=== PATIENT | male | born 1985 | race Two or more races ===

== ENCOUNTER 2020-12-09 21:25 | Emergency (ER) | payer MEDICAID ==
[~2020-12-09] VITALS: Ht 175.3 cm; Wt 99.8 kg
[2020-12-09] MEDS ORDERED: diphenhydrAMINE 50 MG CAPSULE PO ONE (21:30)
[2020-12-09] MEDS ORDERED: OLANZAPINE 5 MG TABLET PO ONE (21:30)
--- NOTE | 2020-12-09 21:50 | NUR ---
Pt placed on suicide precautions, belongings at nursing station.
--- NOTE | 2020-12-09 21:50 | NUR ---
Pt found by staff member attempting to hang himself, Dr. Ragland notified.
[2020-12-09] MEDS ORDERED: LORAZEPAM 2 MG/1 ML VIAL IM ONE (22:00)
[2020-12-09] MEDS ORDERED: HALOPERIDOL LACTATE 5 MG/1 ML VIAL IM ONE (22:00)
--- NOTE | 2020-12-09 22:00 | NUR ---
called for sitter, none available at the time, will continue to monitor.
[2020-12-09 22:12] LABS: HEMATOCRIT 39.1 % (36.7-47.1); MEAN CORPUSCULAR HEMOGLOBIN 29.2 uug (23.8-33.4); MEAN CORPUSCULAR VOLUME 85.5 fL (73.0-96.2); PLATELET COUNT (AUTO) 314 K/uL (152-348)
--- NOTE | 2020-12-09 22:15 | NUR ---
pt in bed, no distressed noted
[2020-12-09 22:16] LABS: CARBON DIOXIDE 25 mmol/L (21-32); CHLORIDE 105 mmol/L (98-107); GLUCOSE 103 mg/dL (74-106); POTASSIUM 3.7 mmol/L (3.5-5.1); UREA NITROGEN, BLOOD 22 mg/dL (7-18)
[2020-12-09] MEDS ORDERED: LORAZEPAM 2 MG/1 ML VIAL ONE (22:16)
[2020-12-09] MEDS ORDERED: HALOPERIDOL LACTATE 5 MG/1 ML VIAL ONE (22:16)
[2020-12-09 22:21] LABS: ALANINE AMINOTRANSFERASE 58 U/L (16-63); ALKALINE PHOSPHATASE 82 U/L (50-136); ASPARTATE AMINOTRANSFERASE 47 U/L (15-37); BILIRUBIN,DIRECT 0.2 mg/dL (0.0-0.2); BILIRUBIN,TOTAL 0.6 mg/dL (0.2-1.0); TOTAL PROTEIN, SERUM 7.9 g/dL (6.4-8.2)
[2020-12-09 22:22] LABS: ACETAMINOPHEN < 2.0 ug/mL (10-30)
[2020-12-09 22:25] LABS: ETHANOL < 3 MG/DL (0-0)
--- NOTE | 2020-12-09 22:30 | NUR ---
pt in bed asleep
--- NOTE | 2020-12-09 22:45 | NUR ---
pt in bed asleep
[2020-12-09] MEDS ORDERED: diphenhydrAMINE 50 MG/1 ML VIAL ONE (23:00)
[2020-12-09] MEDS ORDERED: diphenhydrAMINE 50 MG/1 ML VIAL IM ONE (23:00)
--- NOTE | 2020-12-09 23:00 | NUR ---
pt in bed sleeping
--- NOTE | 2020-12-09 23:20 | NUR ---
Removed restraints at 2320, pt sleeping with no distress.
--- NOTE | 2020-12-09 23:30 | NUR ---
pt in bed sleeping
--- NOTE | 2020-12-09 23:45 | NUR ---
Pt in bed sleeping
--- NOTE | 2020-12-10 | NUR ---
pt in bed sleeping
--- NOTE | 2020-12-10 00:15 | NUR ---
pt in bed sleeping
--- NOTE | 2020-12-10 00:30 | NUR ---
pt in bed sleeping
--- NOTE | 2020-12-10 00:45 | NUR ---
pt in bed sleeping
--- NOTE | 2020-12-10 01:00 | NUR ---
pt in bed sleeping
--- NOTE | 2020-12-10 01:15 | NUR ---
pt in bed asleep
--- NOTE | 2020-12-10 01:30 | NUR ---
pt in bed sleeping
--- NOTE | 2020-12-10 01:45 | NUR ---
pt in bed sleeping, no distress noted
--- NOTE | 2020-12-10 02:00 | NUR ---
pt in bed sleeping
--- NOTE | 2020-12-10 02:15 | NUR ---
pt in bed sleeping
--- NOTE | 2020-12-10 02:30 | NUR ---
Pt in bed asleep
--- NOTE | 2020-12-10 03:00 | NUR ---
Pt is being seen by Patt from [facility].
--- NOTE | 2020-12-10 03:15 | NUR ---
Pt in bed sleeping
--- NOTE | 2020-12-10 03:30 | NUR ---
Pt in bed sleeping, no distress noted.
--- NOTE | 2020-12-10 03:45 | NUR ---
pt in bed sleeping
--- NOTE | 2020-12-10 04:00 | NUR ---
Pt in bed awake, no distressed noted.
--- NOTE | 2020-12-10 04:15 | NUR ---
Pt in bed asleep, no distress noted
--- NOTE | 2020-12-10 04:30 | NUR ---
Pt in bed, sleeping.
--- NOTE | 2020-12-10 04:45 | NUR ---
Pt in bed, sleeping, no distress noted.
--- NOTE | 2020-12-10 05:00 | NUR ---
Pt in bed sleeping, no distress noted.
--- NOTE | 2020-12-10 05:13 | NUR ---
Pt awake and eating, will continue to monitor
--- NOTE | 2020-12-10 05:30 | NUR ---
Pt sitting at edge of the bed, awake, no distressed noted
--- NOTE | 2020-12-10 05:45 | NUR ---
Pt asleep in bed.
--- NOTE | 2020-12-10 06:00 | NUR ---
Pt in bed sleeping
--- NOTE | 2020-12-10 06:16 | NUR ---
Talked to Patt from [facility], will come to evaluate. Pt awake in bed, no distressed noted.
--- NOTE | 2020-12-10 06:31 | NUR ---
Pt in bed asleep
--- NOTE | 2020-12-10 06:44 | NUR ---
Pt in bed asleep, no distressed noted.
--- NOTE | 2020-12-10 06:59 | NUR ---
Pt in bed asleep, no distress noted.
--- NOTE | 2020-12-10 07:13 | NUR ---
Gave report to Karyna FINLEY
--- NOTE | 2020-12-10 07:13 | NUR ---
Pt in bed asleep, no distress noted.
--- NOTE | 2020-12-10 07:30 | NUR ---
PATIENT IS ASLEEP, SLIGHTLY SNORING. VITAL SIGNS STABLE. AWAITING FOR CRISIS TEAM TO ARRIVE
--- NOTE | 2020-12-10 07:32 | NUR ---
NO SITTER AVAILABLE AT THIS TIME FOR CONSTANT AND DIRECT OBSERVATION.
--- NOTE | 2020-12-10 07:55 | NUR ---
Spoke with nursing first line production supervisor and there is no sitter available at this time for 1:1 observation. Security called (per nursing first line production supervisor request) to do 1:1 observation until a sitter is available.
--- NOTE | 2020-12-10 07:58 | NUR ---
PATIENT IS SITTING UP EATING BREAKFAST.
--- NOTE | 2020-12-10 08:20 | NUR ---
[employer] social science teacher here to see patient, requested information provided, stated she will try to find placement for patient.
--- NOTE | 2020-12-10 09:05 | NUR ---
THERE IS A SITTER, "OBSERVER" AT BEDSIDE NOW, TORRES
[2020-12-10] MEDS ORDERED: OLANZAPINE 5 MG TABLET PO ONE (10:15)
[2020-12-10] MEDS ORDERED: OLANZAPINE 5 MG TABLET ONE (10:37)
[2020-12-10] MEDS ORDERED: QUETIAPINE FUMARATE 25 MG TABLET PO ONE (10:45)
--- NOTE | 2020-12-10 10:57 | NUR ---
Social work Note SW is working on finding placement for this patient who has been placed on a 5150 hold due to danger to himself. remelt worker contacted Los ([phone]) from [facility] and he is assisting with placement. remelt worker will follow up and coordinate with ED broker in chargeAndrew.
--- NOTE | 2020-12-10 11:01 | NUR ---
PATIENT IS SITTING UP DRINKING MILK WITH NO NEW COMPLAINTS.
[2020-12-10] MEDS ORDERED: QUETIAPINE FUMARATE 25 MG TABLET ONE (11:30)
--- NOTE | 2020-12-10 13:44 | NUR ---
Patient is sleeping. Awaiting for bed placement by Social Work.
[2020-12-10] MEDS: LITHIUM CARBONATE 300 MG CAPSULE PO SCH ×2 (15:34→23:33)
[2020-12-10] MEDS ORDERED: LITHIUM CARBONATE 300 MG CAPSULE ONE ×2 (15:38→23:30)
--- NOTE | 2020-12-10 15:49 | NUR ---
Clinical Social Work Note [facility] has made numerous attempts to place this patient with no success so far. Please refer to hr notes. ED will be called if a bed is located. A [address] written by Mavis Corado RN at 2252 on 12/09/20. Hold expires at 2252 on 12/12/20. This magnetic tape typewriter operator spoke to Dr Campos ([phone]) who advised that Dr Greenberg his WAXING MACHINE OPERATOR HELPER will consult on this patient. One to one sitter at bedside. Patient is sleeping soundly after sedation given by ED MD. Patient was intoxicated with stimulants ( methamphetamines) and Fentanyl upon arrival in ED. Will await callback from an accepting facility and ED can transfer patient when a bed is available. ED MD and RNs to please monitor for escalation in behavior. Pt. needed sedation last night and this morning.
--- NOTE | 2020-12-10 16:21 | NUR ---
Clinical Social Work Note Social work Note MAGDALENA is working on finding placement for this patient who has been placed on a 5150 for danger to self. reworker has contacted Los ([phone]) from [facility] and he is assisting with placement. MAGDALENA has faxed referral for patient to [facility] [address] [place] [address] ([phone]) as well as [facility] [address], [place] [address] . MAGDALENA left a voicemail for intake director at [facility] requesting a call back. Plan: SW will continue to work on finding placement for patient and inform ED as to progress. reworker will provide ED phone number to facilities that are considering the patient.
--- NOTE | 2020-12-10 16:24 | NUR ---
PATIENT ATE A HAMBURGER, SANDWICH, CRACKERS AND PUDDING. HE ALSO DRANK A LOT OF MILK.
--- NOTE | 2020-12-10 18:08 | NUR ---
Patient is sleeping, slightly snoring.
--- NOTE | 2020-12-10 18:09 | NUR ---
Observer still at bedside
--- NOTE | 2020-12-10 18:52 | NUR ---
Patient is sitting up eating dinner. Hand off report given to Emily FINLEY
--- NOTE | 2020-12-10 19:13 | NUR ---
Pt is sleeping in bed, no distress noted. One to one sitter is at bedside.
[2020-12-10] MEDS ORDERED: QUETIAPINE FUMARATE 25 MG TABLET PO SCH (21:00)
--- NOTE | 2020-12-10 21:35 | NUR ---
Pt refused to have v/s taken.
[2020-12-10] MEDS ORDERED: QUETIAPINE FUMARATE 200 MG TABLET ONE (23:05)
--- NOTE | 2020-12-10 23:42 | NUR ---
Pt in bed asleep, no distress noted, one to one sitter at bedside.
--- NOTE | 2020-12-11 01:26 | NUR ---
Pt in bed asleep, sitter at bedside.
--- NOTE | 2020-12-11 02:38 | NUR ---
Pt in bed asleep, no distress noted.
--- NOTE | 2020-12-11 03:33 | NUR ---
Pt sleeping, one to one sitter at bedside.
--- NOTE | 2020-12-11 04:34 | NUR ---
Pt asleep in bed, no distress noted, one to one sitter at bedside.
--- NOTE | 2020-12-11 05:35 | NUR ---
Pt awake in bed, eating a sandwich, no distress noted, one to one sitter at bedside.
--- NOTE | 2020-12-11 06:58 | NUR ---
Pt in bed asleep, one to one sitter at bedside.
--- NOTE | 2020-12-11 07:20 | NUR ---
Gave report to Homero FINLEY.
--- NOTE | 2020-12-11 07:30 | NUR ---
PT REFUSES VS TO BE TAKEN.
--- NOTE | 2020-12-11 08:30 | NUR ---
PT HAD 2 TRAYS OF BREAK FAST
[2020-12-11] MEDS: LITHIUM CARBONATE 300 MG CAPSULE PO SCH (09:00)
--- NOTE | 2020-12-11 09:04 | NUR ---
pt refused am dose of lithium, when asked why he does not want to take it, he got agitated and did not answer the question.
--- NOTE | 2020-12-11 11:10 | NUR ---
WENDY JUAN, MOUNTER FLUTES AND PICCOLOS, AT BEDSIDE TO EVALUATE THE PT.
--- NOTE | 2020-12-11 12:35 | NUR ---
PT HAD LUNCH TRAY
--- NOTE | 2020-12-11 14:07 | NUR ---
Social work Note MAGDALENA is working on finding placement for this patient who has been placed on a 5150 for danger to self. vineyard worker has contacted Los ([phone]) from [facility] and he is assisting with placement. MAGDALENA spoke with [facility] Intake department, [address], [place] [address] , to request a follow up for the referral. Intake department informed SW that they can not accept patient due not accepting [employer] for [place] adults. MAGDALENA spoke with [facility] (Intake director Damaris) , who stated that one doctor denied patient, but she will work on checking with Dr. Buckner about patients placement. MAGDALENA spoke with Meredith, patient services coordinator at [facility] , who informed SW that fax was received and referral is currently under review. MAGDALENA spoke with Los ([phone]) from [facility], to discuss placing patient at [facility], voluntarily after Dr. Campos clears patient and breaks the hold. Los informed SW that they can consider patient once he is medically cleared and they would need a progress note stating that the hold has been discontinued with time/date as well patient requesting lower level of care. Plan: MAGDALENA will continue to work on finding placement for patient and inform ED as to progress.
--- NOTE | 2020-12-11 14:53 | NUR ---
Bridge Note Patient has been abusing Fentanyl and needs to be monitored for opioid withdrawal. Patient will be given MAT programs for follow up but at this point, we are attempting to get him inpatient psychiatric hospitalization.
--- NOTE | 2020-12-11 15:48 | NUR ---
Placement Note Patient ws seen by Dr Greenberg this morning. [address] Patient is agreeable to voluntary treatment and this clinician spoke with Dr Campos how stated that he will reevaluate patient tomorrow for possible voluntary transfer to [facility]. Patient is refusing lithium but taking Seroquel prescribed by Dr Greenberg..
--- NOTE | 2020-12-11 18:00 | NUR ---
PT FINISHED THE DINNER TRAYWITH GOOD APETITE.
--- NOTE | 2020-12-11 18:00 | NUR ---
pt in bed awake, axox4, more cooperative at this time vss done
--- NOTE | 2020-12-11 19:01 | NUR ---
END OF SHIFT REPORT: ONE TO ONE SITTER AT BEDSIDE THE WHOLE SHIFT, PT AMBULATED TO BATHROOM MULTIPLE TIMES WITH STREADY GAIT. EARLIER DURING THE DAY PT REFUSED VSS OR ANY OTHER INTERVENTION, AT THE END OF T PT MORE COOPERATIVE. NO SIGN OF DISTRESS THEWHOLE SHIFT. PT HAD MULTIPLE JUICES AND CRACKERS BETWEEN THE MEALS.
--- NOTE | 2020-12-11 19:11 | NUR ---
Assumed care of patient from day shift nurse Homero. patient lying in bed. Asleep. 1:1 sitter on site. Calm and comfortable at this time. In no apparent distress.
--- NOTE | 2020-12-11 20:00 | NUR ---
Patient requested for something to eat. Provided dinner tray and ate 100% of his meal.
[2020-12-11] MEDS ORDERED: QUETIAPINE FUMARATE 100 MG TABLET ONE (20:17)
[2020-12-11] MEDS ORDERED: QUETIAPINE FUMARATE 200 MG TABLET ONE (20:17)
[2020-12-11] MEDS ORDERED: QUETIAPINE FUMARATE 25 MG TABLET PO SCH (21:00)
--- NOTE | 2020-12-12 | NUR ---
Patient sleeping in bed. Appears comfortable. Denies any pain or discomfort.
--- NOTE | 2020-12-12 03:00 | NUR ---
Patient sleeping in bed. Appears comfortable.
--- NOTE | 2020-12-12 06:31 | NUR ---
Patient slept through out the night. No behavioral issues noted. Calm and cooperative with care.1:1 sitter on site. Needs assessed and attended to. Continue to monitor.
--- NOTE | 2020-12-12 07:03 | NUR ---
Report given to day shift MALIA Alberts.
--- NOTE | 2020-12-12 08:03 | NUR ---
Art called from crisis team regarding placement for patient, Art states he will call socila worker and call me back
--- NOTE | 2020-12-12 09:08 | NUR ---
Afua called at this time regarding placement optioons for this patient, Candis states she will text MD Campos regarding a follow up with this patient
--- NOTE | 2020-12-12 10:09 | NUR ---
Patient refused CT at this time, awaiting MD Campos arrival, 1 to 1 sitter at bedside, no behaviors noted from patient, patient still verbalizes SI at this time
--- NOTE | 2020-12-12 11:49 | NUR ---
MD Campos at bedside for assessment at this time
--- NOTE | 2020-12-12 12:25 | NUR ---
5150 hold broken by Andres delivery sales worker Zandra states she will arrange for patient to go to [facility]
[2020-12-12] MEDS ORDERED: LORAZEPAM 2 MG/1 ML VIAL IM ONE (13:45)
[2020-12-12] MEDS ORDERED: BUPRENORPHINE HCL 2 MG TAB.SUBL SL ONE ×2 (13:45→14:38)
[2020-12-12] MEDS ORDERED: LORAZEPAM 2 MG/1 ML VIAL ONE (14:07)
--- NOTE | 2020-12-12 14:20 | NUR ---
Report given to Elizabeth FINLEY of [facility]
--- NOTE | 2020-12-12 14:23 | NUR ---
Clinical Social Work Note and Bridge Note Plan: Patient is now on voluntary status with somewhat irritable mood but very agreeable to voluntary admission to [facility] ([phone]). Dr Campos discontinued the 5150. Bubrenorphine was given by Dr Greenfield which patient welcomed. he uses Fentanyl daily and has had Subotex in the past. Patient will go via [facility] to [facility] ([phone]). RN will give nurse to nurse report to [facility] ([phone]). ETA for ambulance is about 1530.
--- NOTE | 2020-12-12 15:08 | NUR ---
Patient being picked up by [facility] at this time and will transport to [facility] at this time, no signs of acute distress noted,
== END 2020-12-12 15:30 ==
LOC: ER 21:28
DX: T14.91XA Suicide attempt, initial encounter (principal); X83.8XXA Intentional self-harm by other specified means, initial encounter; Y92.230 Patient room in hospital as the place of occurrence of the external cause; F31.5 Bipolar disorder, current episode depressed, severe, with psychotic features; Z81.8 Family history of other mental and behavioral disorders; F20.9 Schizophrenia, unspecified; F19.10 Other psychoactive substance abuse, uncomplicated; F15.10 Other stimulant abuse, uncomplicated
CPT/HCPCS: 36415; 80048; 80076; 80299; 80320; 85025; 87426; 93005; 96372 ×2; 99291; J1200; J1630; J2060 ×2; A4663; G0480